=== PATIENT | female | born 1975 | race African-American/Black ===

== ENCOUNTER 2016-11-30 05:04 | Inpatient (IN) | payer MEDICAID ==
[2016-11-30] MEDS ORDERED: MAG HYDROX/AL HYDROX/SIMETH 30 ML CUP PO PRN (07:15)
[2016-11-30] MEDS ORDERED: MAGNESIUM HYDROXIDE 2,400 MG/10 ML CUP PO PRN (07:15)
[2016-11-30] MEDS ORDERED: ZIPRASIDONE 20 MG VIAL IM PRN (07:15)
[2016-11-30] MEDS ORDERED: ACETAMINOPHEN TAB 325 MG TAB PO PRN (07:15)
[2016-11-30] MEDS ORDERED: LORazepam 2 MG/ML SYRINGE IM PRN (07:21)
[2016-11-30] MEDS: NICOTINE 14MG/24HR PATCH TRANSDERM SCH (08:45)
[2016-11-30] MEDS: LORazepam 1 MG TAB PO PRN ×2 (08:46→16:25)
[2016-11-30] MEDS ORDERED: DIPHENOX-ATROP 2.5-0.025 MG 1 EACH TAB PO PRN (09:49)
[2016-11-30 10:26] VITALS: BMI 29.8
[2016-11-30] MEDS: cloNIDine HCL 0.2 MG TAB PO SCH ×3 (10:30→21:35)
[2016-11-30] MEDS: ONDANSETRON 4 MG TAB PO PRN ×2 (10:32→17:47)
--- NOTE | 2016-11-30 15:28 | P.HP ---
Psychiatric H&P - . H&P Date: 11/30/16 History & Physical: IDENTIFYING DATA: Ms. Daniel is a 41-year-old single -Nigerien woman transferred from [facility] with suicidal ideation. HISTORY OF PRESENT ILLNESS: According to the records from [facility] she presented with suicidal ideation and a plan to "overdose on pills". She also reported "intermittent suicidal ideation." She told her brother today about her suicidal thoughts and he call emergency services. She had difficulty concentrating and attending to the interview due to level of her distress. She stated that she has been feeling depressed and having thoughts of suicide because she is "tired of using drugs". She complained of "feeling sick" because he has not used heroin since the day prior to admission. She complained of daily use of heroin and frequent use of cocaine. She either insufflate or injects heroin. She smokes the cocaine. She feels frustrated and angry that she is unable to stop using drugs. She denied suicidal thoughts or wishes during our interview. She stated that she told her brother that she was having thoughts of suicide because she wanted to get treatment for her drug use. She requested to a referral to a residential substance abuse treatment program. She described feelings depression, hopelessness, helplessness and worthlessness. She described decreased interest in activities other than using drugs. She feels guilty over her drug use and her failed attempts to stop using. She has difficulty concentrating, has difficult decreased energy and decrease in pleasure in activities. She complained of anxiety that increases when she is unable to obtain heroin. She spends most for day either trying to obtain heroin and cocaine, using the drugs or recovering from their effects. She described symptoms of opiate withdrawal including diffuse aching of her joints and muscles, nausea and loose stools, irritability and anxiety. She denied psychotic symptoms such as auditory or visual hallucinations, ideas of reference, thought insertion, thought withdrawal or thought broadcasting. She stated the "occasionally" takes narcotic pain medications such as Vicodin or oxycodone. He denied the use of alcohol, methamphetamine, marijuana or hallucinogenic. PAST PSYCHIATRIC HISTORY: She has had several past psychiatric hospitalizations. She was discharged from this unit on 05/17/2015 with diagnosis of drug overdose, depression and opiate dependence. PAST MEDICAL HISTORY: She is hepatitis C positive. She is unaware whether she is been tested for HIV. ALLERGIES: NO KNOWN DRUG ALLERGIES. SUBSTANCE USE HISTORY: She stated that she has been using heroin for the last 3 years. She briefly attended a treatment program at [place]. She has not participated in a methadone clinic or prescribed Suboxone. She denied that she has been in long-term residential rehabilitation program. She has been using cocaine "for 2 years". She primarily smokes cocaine and denied injecting. She has exchanged sex for money in order to buy drugs but denied that she exchanged sex for drugs. FAMILY PSYCHIATRIC/SUBSTANCE USE HISTORY: She alleged that "all my family" have a mental illness. She lives with her mother, brother and sister all of whom are on disability for mental health issues. She stated that most of her family have bipolar illness or schizophrenia. LEGAL HISTORY: He denied current legal problems. She is not on probation, parole or has pending charges. She denied arrests or time spent in [facility]. SOCIAL HISTORY: She was born in [place] and raised primarily by her mother. She has 9 brothers and sisters from different fathers. She left school in the 10th grade. 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 She's been unemployed for 5 years. She has no income. She lives with her mother, a brother and sister in [facility]. She has 2 children ages 4 and 17 who are under the care of their respective fathers. MENTAL STATUS EXAM: She presented as a disheveled appearing 41-year-old - Nigerien female who was in acute distress. She had difficulty concentrating and attending to the interview. She did not make eye contact. She frequently bent over in his chair and held her stomach. She complained of "feeling sick." She had no distinguishing features or prominent physical abnormalities. She had a distressed facial expression. She was sedated but oriented to person, place and time. She had marked psychomotor retardation and no abnormal involuntary movements. She had a slow but steady gait. Her speech was not spontaneous. It had decreased rate, rhythm and volume. Her affect was dysphoric and unreactive. She denied current suicidal ideation but expressed wishes related to her ongoing drug use. She denied homicidal ideation. She expressed depressive cognitions including hopelessness, helplessness and worthlessness. She ruminated under on her drug use and her inability to stop using drugs. She denied obsessions or compulsions. She denied phobias and ideas of reference. She did not express paranoid ideation or delusional beliefs. Her thinking was concrete but her associations were coherent and logical. She did not demonstrate perseveration, neologisms or blocking. She denied hallucinations and did not appear to be responding to internal stimuli. Global impression of intellect is average to below. She is aware of her illness and need for substance abuse treatment. STRENGTHS: Stable housing, supportive family, good physical health. WEAKNESSES: Lack of income, use of heroin and cocaine IMPRESSION: She is a 41-year-old single Nigerien female who has a history of clear heroin and cocaine use disorder. She presented with depression and suicidal ideation related to her inability to stop using drugs. She is experiencing acute signs and symptoms of opiate withdrawal. She would best be treated inpatient basis for the opiate withdrawal. After withdrawal, evaluate need for mental health treatment and refer for residential substance abuse treatment. 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 Symptomatic treatment of her opiate withdrawal symptoms with clonidine, Ativan, Lomotil and Zofran. Consult medicine service for a physical exam and medical history. Completed a social service evaluation and coordinated referral to residential substance abuse treatment with clinical social worker. Allergies Allergy/AdvReac Type Severity Reaction Status Date / Time No Known Allergies Allergy Verified 11/30/16 10:27 Vital Signs Temp 98.1 F 11/30/16 06:50 Pulse 107 H 11/30/16 10:33 Resp 16 11/30/16 10:33 BP 114/77 11/30/16 10:33 Pulse Ox 99 11/30/16 06:50 Intake & Output 11/29/16 11/30/16 11/30/16 18:59 06:59 18:59 Weight 67 kg Laboratory Last Values TSH 0.026 mIU/L (0.465-4.680) L 11/30/16 09:20 11/30/16 13:14 11/30/16 15:21
[2016-11-30] MEDS ORDERED: ALBUTEROL INHALER 60 PUFF/8 GM INHALER INHALATION PRN (15:48)
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
[2016-11-30] MEDS: SYMBICORT 80-4.5 MCG INHALER INHALATION SCH (22:15)
[2016-12-01] MEDS: LORazepam 1 MG TAB PO PRN (02:48)
[2016-12-01] MEDS: ONDANSETRON 4 MG TAB PO PRN (03:32)
[2016-12-01] MEDS: SYMBICORT 80-4.5 MCG INHALER INHALATION SCH ×2 (07:58→20:36)
[2016-12-01] MEDS: PANTOPRAZOLE 40 MG TABLET PO SCH (08:18)
[2016-12-01] MEDS: NICOTINE 14MG/24HR PATCH TRANSDERM SCH (08:18)
[2016-12-01] MEDS: amLODIPine 10 MG TAB PO SCH (09:10)
[2016-12-01] MEDS: cloNIDine HCL 0.2 MG TAB PO SCH (09:10)
[2016-12-01] MEDS: LISINOPRIL-HCTZ 20-12.5 MG 1 EACH TAB PO SCH (09:10)
[2016-12-01] MEDS ORDERED: INFLUENZA VACCINE (3YR+) 60 MCG/0.5 ML SYRINGE IM ONE (12:00)
[2016-12-01] MEDS: QUEtiapine 25 MG TAB PO SCH ×2 (12:18→16:45)
[2016-12-01] MEDS: VENLAFAXINE HCL ER 75 MG CAP PO SCH (12:19)
--- NOTE | 2016-12-01 14:45 | P.PN ---
Progress Note - Text CLINICAL PROBLEMS: Ms. Daniel is a 41-year-old single -Icelandic woman who has a history of heroin and cocaine use disorder. She presented with complaints of depression and suicidal ideation that developed as she was attempting to self detox from heroin and cocaine. She spoke with the psychiatric social worker about referral for residential substance abuse treatment. Her [facility] chart authorized admission to [facility]. She made initial contact to the program. She minimized the severity of her opiate withdrawal symptoms and complained that we not are not addressing her "depression, anxiety ... and sleep problems. ". I explained that he would not prescribe her benzodiazepine or opioid pain medications. We discussed treatment options and agreed to a trial of antidepressant and a nonnarcotic sleep medication. She consented to a trial of venlafaxine and Seroquel. 24 HOUR EVENTS: She received Lomotil, Zofran, clonidine and 1 dose of lorazepam for opiate withdrawal symptoms. EXAMINATION: She presented as an irritable and angry 41-year-old - Icelandic woman. She was dressed in casual clothes and was wearing makeup. She made eye contact and appeared to attend to interview. She had no distinguishing features or prominent physical abnormalities. She showed no abnormality of psychomotor activity. She had no abnormal movements. Her gait was slow but stable. Her speech was spontaneous with normal rate, rhythm and volume. Her affect was angry and at times intense and appropriate. She denied suicidal ideation or wish. She expressed depressive cognitions such as helplessness. She denied ideas reference didn't express paranoid ideation. Her thinking was concrete. Associations were coherent and logical. PERTINENT DATA: TSH was low at 0.026 ASSESSMENT: She is irritable and most like he experiencing continued opiate withdrawal symptoms. She is complaining of symptoms of depression and anxiety. She has paid initial contact for residential substance abuse treatment. PLAN: Decrease clonidine to 0.1 mg 3 times a day and discontinue over the next 2 or 3 days. Continue current dose of Lomotil, Zofran and lorazepam for opiate withdrawal symptoms. Begin venlafaxine ex are 75 mg daily and Seroquel 25 mg twice a day and 100 mg at bedtime. Encourage participation in therapeutic groups and activities. Evaluate clinical status response to treatment on a daily basis. She may be discharged to residential substance abuse program.
[2016-12-01] MEDS: cloNIDine HCL 0.1 MG TAB PO SCH ×2 (16:45→21:45)
[2016-12-01] MEDS: QUEtiapine 100 MG TAB PO SCH (21:44)
[2016-12-02] MEDS: PANTOPRAZOLE 40 MG TABLET PO SCH (08:18)
[2016-12-02] MEDS: LISINOPRIL-HCTZ 20-12.5 MG 1 EACH TAB PO SCH (08:36)
[2016-12-02] MEDS: QUEtiapine 25 MG TAB PO SCH ×2 (08:37→16:08)
[2016-12-02] MEDS: amLODIPine 10 MG TAB PO SCH (08:37)
[2016-12-02] MEDS: VENLAFAXINE HCL ER 75 MG CAP PO SCH (08:38)
[2016-12-02] MEDS: cloNIDine HCL 0.1 MG TAB PO SCH (08:38)
[2016-12-02] MEDS: NICOTINE 14MG/24HR PATCH TRANSDERM SCH (08:38)
[2016-12-02] MEDS: SYMBICORT 80-4.5 MCG INHALER INHALATION SCH ×2 (09:55→21:21)
[2016-12-02] MEDS ORDERED: hydrOXYzine PAMOATE 25 MG CAP PO PRN (11:52)
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
[2016-12-02 12:55] LABS: Appearance,Urine Cloudy (Clear); Bacteria,Urine Rare /hpf; Bilirubin,Urine Negative (Negative); Glucose,Urine (UA) Negative (Negative); Ketones,Urine Negative (Negative); Leukocyte Esterase,Urine Small (Negative); Nitrite,Urine Negative (Negative); PH, Urine 5.5 (5.0-8.0); Particle Count 4433; Protein,Urine Negative (Negative); RBC,Urine 3 /hpf (0-5); Specific Gravity,Urine 1.009 (1.001-1.035); Squamous Epithelial Cell,Urine 13 /hpf (0-4); UA Billing (MACRO vs. MICRO) MICRO; Urobilinogen,Urine <2.0 mg/dL (<2.0); WBC,Urine 3 /hpf (0-5)
[2016-12-02] MEDS: LORazepam 1 MG TAB PO PRN (18:23)
[2016-12-02] MEDS: DOXYCYCLINE 50 MG CAP PO SCH (20:16)
[2016-12-02] MEDS: QUEtiapine 100 MG TAB PO SCH (20:16)
[2016-12-03] MEDS: LORazepam 1 MG TAB PO PRN ×3 (04:02→20:42)
[2016-12-03] MEDS: NICOTINE 14MG/24HR PATCH TRANSDERM SCH ×2 (08:20→15:19)
[2016-12-03] MEDS: QUEtiapine 25 MG TAB PO SCH ×2 (08:22→15:19)
[2016-12-03] MEDS: VENLAFAXINE HCL ER 75 MG CAP PO SCH (08:22)
[2016-12-03] MEDS: LISINOPRIL-HCTZ 20-12.5 MG 1 EACH TAB PO SCH (08:22)
[2016-12-03] MEDS: PANTOPRAZOLE 40 MG TABLET PO SCH (08:22)
[2016-12-03] MEDS: amLODIPine 10 MG TAB PO SCH (08:22)
[2016-12-03] MEDS: DOXYCYCLINE 50 MG CAP PO SCH ×2 (08:22→20:42)
[2016-12-03] MEDS: SYMBICORT 80-4.5 MCG INHALER INHALATION SCH ×2 (09:32→20:40)
--- NOTE | 2016-12-03 12:04 | P.PN ---
Progress Note - Text Interval history: The patient is found in the hallway she follows me to an interview room. She reports that she did not sleep well last night, she continues to feel depressed, and feels anxious. She states she would like the Ativan dose increased and would like another "nerve pill". She found the Vistaril ineffective and does not wish to continue trying that medication. We discussed titrating the bedtime Seroquel dose further and she is agreeable. We again reviewed her psychotropic medications and emphasized the potential beneficial impact of the Effexor XR. We discussed that we need to refrain from using any more medications that have addictive potential. She verbalizes a willingness to attend inpatient chemical dependency treatment. Mental status exam: The patient is an alert -Dominican female appearing her stated age. She is seated calmly eye contact is appropriate. She endorses a depressed mood with ongoing anxiety. Affect is constricted. She denies having any acute suicidal or homicidal ideation today. She is endorsing no auditory or visual hallucinations. Speech is spontaneous fluent nonpressured thought process is free of any tangential thinking flight of ideas or loose associations. She demonstrates no verbal or physical aggressiveness. She is easily directed in the interview. She remains oriented to person place and date. Plan: The patient will continue on her current psychotropic medications however I will discontinue the Vistaril as she found ineffective. I will increase her bedtime Seroquel dose to 200 mg. I a informed her that we could not increase her use of benzodiazepine and that we should move in the direction of trying to taper that down. Dr. Malcolm was contacted and the patient was started on doxycycline for her complaint of vaginal discharge. We will monitor the patient for safety we will encourage her participation in the milieu. Vital signs reviewed. Dr. Kern will resume care of this patient starting tomorrow.
[2016-12-03] MEDS ORDERED: QUEtiapine 200 MG TAB PO SCH (21:00)
[2016-12-04] MEDS: LORazepam 1 MG TAB PO PRN (04:29)
[2016-12-04] MEDS: VENLAFAXINE HCL ER 75 MG CAP PO SCH (08:10)
[2016-12-04] MEDS: PANTOPRAZOLE 40 MG TABLET PO SCH (08:10)
[2016-12-04] MEDS: DOXYCYCLINE 50 MG CAP PO SCH ×2 (08:10→19:53)
[2016-12-04] MEDS: QUEtiapine 25 MG TAB PO SCH (08:10)
[2016-12-04] MEDS: LISINOPRIL-HCTZ 20-12.5 MG 1 EACH TAB PO SCH (08:10)
[2016-12-04] MEDS: amLODIPine 10 MG TAB PO SCH (08:10)
[2016-12-04] MEDS: SYMBICORT 80-4.5 MCG INHALER INHALATION SCH ×2 (09:14→18:54)
[2016-12-04] MEDS: NICOTINE 14MG/24HR PATCH TRANSDERM SCH (09:59)
[2016-12-04] MEDS ORDERED: VENLAFAXINE HCL ER 75 MG CAP PO SCH (10:28)
[2016-12-04] MEDS ORDERED: QUEtiapine 100 MG TAB PO SCH (10:30)
[2016-12-04] MEDS: NALTREXONE HCL 50 MG TAB PO SCH (11:50)
[2016-12-04] MEDS: LORazepam 1 MG TAB PO SCH ×3 (12:54→21:11)
[2016-12-04] MEDS ORDERED: RX INFO: IV CONTRAST WAS GIVEN 1 EACH MISC MISCELLANE PRN (13:53)
--- NOTE | 2016-12-04 13:54 | P.PN ---
Progress Note - Text SUBJECTIVE: Ms. Daniel complained of anxiety and insomnia and requested an increase in the dose of lorazepam. When I denied her request she requested a prescription for clonazepam. She also requested a prescription for Ambien alleging that "a physician" has prescribed her Ambien. She alleged that his outpatient doctor has been prescribing her clonazepam for "anxiety". She is denying that she is experiencing opiate withdrawal symptoms. We talked about the effects of chronic opiate use on the brain and how individuals who use heroin feel dysphoric for several months after he stopped using heroin. Later in the morning she complained of right flank pain. OBJECTIVE: She presented as a neatly groomed and dressed 41-year-old female who looked younger than her stated age. She was flirtatious. She maintained eye contact and appeared to attend to the interview. She slept 5 hours last night. She had a bright facial expression. She was alert and oriented to person, place and time. She showed no abnormality of psychomotor activity. She had no abnormal movements. Her gait was stable. Her speech was spontaneous with normal rate, rhythm and volume. Her affect was bright and reactive. She denied suicidal ideation or wishes. She denied depressive cognitions such as hopelessness, helplessness and worthlessness. Her thinking was concrete. Associations were coherent and logical. She denied hallucinations and did not appear to be responding to internal stimuli. ASSESSMENT: She does not have signs or symptoms of acute opiate withdrawal. For sleep and anxiety complaints. Her dysphoria is most likely related to her chronic opiate use. Her complaints of anxiety are disproportionate to her presentation. She is medication seeking. She is complaining of right flank pain. PLAN: Reconsult medicine service for the right flank pain. Increase Effexor XR 250 mg daily. Increased quetiapine to 50 mg by mouth twice a day and 300 mg at bedtime for sleep and anxiety complaints. Evaluate clinical status and response to treatment on a daily basis. Social work to assist with placement in a residential substance abuse treatment program.
[2016-12-04] MEDS: IOHEXOL 350 MG/ML 25 ML BOTTLE (ORAL USE) PO PRN ×2 (14:19→15:14)
--- NOTE | 2016-12-04 14:50 | P.PN ---
Subjective This is a 41-year-old -[place] female with past history of emphysema, hypertension, right ovarian cyst, hepatitis C, tobacco use and dependence, heroin and cocaine use, prescription drug abuse with Paulina and Klonopin, schizophrenia, anxiety, bipolar. Patient gives history that she was at [facility] as she was trying to quit taking heroin and she had withdrawal symptoms. She was stabilized and then transferred to [facility] unit. Patient denies any shortness of breath. She denies any nausea vomiting, lightheadedness or dizziness. 12/04: We have been asked to recheck patient for complaints of abdominal pain. She gives history that she has a right ovarian cyst that causes her pain since September. The pain comes and goes. She thinks she has had chills. No documented fevers. Urinalysis negative. She states her last bowel movement was this morning. CAT scan of the abdomen and pelvis ordered. Objective - Vital Signs Vital signs: Vital Signs Temp 97.4 F L 12/04/16 05:42 Pulse 102 H 12/04/16 09:13 Resp 16 12/04/16 09:13 BP 112/70 12/04/16 09:13 Pulse Ox 99 11/30/16 06:50 Intake & Output 12/03/16 12/04/16 12/04/16 18:59 06:59 18:59 Weight 63.1 kg - Exam Gen: This is a 41-year-old -[place] female. She is cooperative and appears to be in no acute distress. HEENT: Head is atraumatic, normocephalic. Pupils equal, round. Sclerae is anicteric. NECK: Supple. No JVD. No lymphadenopathy. No thyromegaly. LUNGS: Clear to auscultation. No wheezes or rhonchi. No intercostal retractions. HEART: Regular rate and rhythm. No murmur. ABDOMEN: Soft. Bowel sounds are present. No masses. Right lower quadrant tenderness. EXTREMITIES: No pedal edema. No calf tenderness. NEUROLOGICAL: Patient is awake, alert and oriented x3. Cranial nerves 2 through 12 are grossly intact. Assessment and Plan Plan: 1. Depression. Patient admitted to the mental health unit. Continue current plan of care. 2. Heroin abuse and withdrawal, cocaine, prescription drug use. Continue as in #1. 3. Tobacco use and dependence. Continue nicotine patch. 4. Emphysema, stable. Albuterol inhaler 2 puffs every 6 hours as needed. Patient is also on Dulera as an outpatient. 5. Hypertension. Continue Zestoretic daily, Norvasc 10 mg daily with parameters. 6. Ovarian cyst requiring surgery. Patient to follow-up as an outpatient. CAT scan of the abdomen and pelvis with oral and IV contrast to rule out appendicitis. 7. History of hepatitis C. Patient will need follow-up as an outpatient. Impression and plan of care have been directed as dictated by the signing physician. Jenifer Tejada nurse practitioner acting as scribe for signing physician. Time with Patient: Greater than 30
[2016-12-04] MEDS: QUEtiapine 50 MG TAB PO SCH ×2 (16:21→16:52)
--- NOTE | 2016-12-04 16:55 | CT ---
EXAMINATION TYPE: CT abdomen pelvis w con DATE OF EXAM: 12/04/2016 4:47 PM HISTORY: Right Lower Quadrant pain CT DLP: 421.5mGycm Automated Exposure Control for Dose Reduction was Utilized. CONTRAST: CT scan of the abdomen and pelvis is performed with IV Contrast, patient injected with 100 mL of Omni paque 300. COMPARISON: None. FINDINGS: LUNG BASES: No significant abnormality is appreciated. LIVER/GB: No significant abnormality is appreciated. PANCREAS: No significant abnormality is seen. SPLEEN: No significant abnormality is seen. ADRENALS: No significant abnormality is seen. KIDNEYS: No significant abnormality is seen. BOWEL: Patient has very little intra-abdominal fat making evaluation suboptimal. Oral contrast reache s level of the distal transverse colon. There is no suspicious small or large bowel dilatation identi fied. Appendix is felt within normal limits seen from the medial margin of the cecum best on coronal images 37 through 44. Some prominence of fecal material in the transverse colon is noted. UTERUS/ADNEXA: Uterus is anteverted in shape and within normal limits in size. There is linear calcif ication along the left superior uterine wall of uncertain etiology presumed benign. Right ovary is se en on axial image 58 and is upper limits of normal in size. Left ovary is not as well seen. No left-s ided adnexal mass is clearly identified. LYMPH NODES: No greater than 1cm abdominal or pelvic lymph nodes are appreciated. OSSEOUS STRUCTURES: There are bilateral pars defects. There is grade 2 anterolisthesis of L5 on S1. T here is advanced disc space narrowing with endplate sclerosis at this level. Bilateral neural foramin a are narrowed. OTHER: No significant additional abnormality is seen. IMPRESSION: 1. No CT evidence for acute appendicitis. No bowel obstruction is present. There may be mild to moder ate mid colonic fecal stasis. 2. Bilateral pars defects L5 level with grade 2 anterolisthesis of L5 on S1 and advanced degenerative changes at lumbosacral junction noted.
[2016-12-05 06:47] VITALS: TEMP 98
[2016-12-05 08:38] VITALS: BP 127/65; PULSE 106; RESP 18
[2016-12-05] MEDS: PANTOPRAZOLE 40 MG TABLET PO SCH (08:38)
[2016-12-05] MEDS: amLODIPine 10 MG TAB PO SCH (08:38)
[2016-12-05] MEDS: LISINOPRIL-HCTZ 20-12.5 MG 1 EACH TAB PO SCH (08:38)
[2016-12-05] MEDS: DOXYCYCLINE 50 MG CAP PO SCH (08:39)
[2016-12-05] MEDS: QUEtiapine 50 MG TAB PO SCH (08:39)
[2016-12-05] MEDS: LORazepam 1 MG TAB PO SCH (08:39)
[2016-12-05] MEDS: NALTREXONE HCL 50 MG TAB PO SCH (08:40)
[2016-12-05] MEDS: NICOTINE 14MG/24HR PATCH TRANSDERM SCH ×2 (08:42→09:00)
[2016-12-05] MEDS: SYMBICORT 80-4.5 MCG INHALER INHALATION SCH (09:24)
[2016-12-05] MEDS ORDERED: LORazepam 1 MG TAB PO PRN (09:50)
[2016-12-05] MEDS ORDERED: CYANOCOBALAMIN 500 MCG TAB PO SCH (12:00)
--- NOTE | 2016-12-05 12:23 | P.PN ---
Progress Note - Text SUBJECTIVE: Annie again requested a prescription for Adderall and an increase in the dose of Ativan. She alleged that "a doctor" has been prescribing her clonazepam. She put on a dramatic show when I told her that I would not prescribe her controlled substances and I would not discharge her with a prescription for Ativan. She pleaded that she did "something" to give her energy and requested a "B12 shot." I explained we do not administered B-12 shots on the unit without an bale opener recommendation for such treatment. As a compromise I offered to prescribe a B12 oral supplement. She stated she no longer wishes to be admitted to [facility] for substance abuse treatment. She reported bad experience during her last admission there in September 2016. She stated that she wished to arrange follow-up at [facility] and [facility] and returned to her mother's home. After the initial interview she approachged me in the hallway and again pleaded for me to prescribe her something to boost her energy. She was less dramatic in response to my refusal. She apprached me in the hallway a third time alleging that she is depressed, anxious and "hearing voices". She alleged that all of her family have schizophrenia, bipolar or ADHD and receiving treatments for any illnesses. I explained that we are providing her treatment for depression and anxiety. I once again explained that we will not be prescribing her controlled substance giving her history of substance use disorders. OBJECTIVE: She presented as a dramatic and labile 41-year-old - [place] female who was neatly groomed and wearing heavy makeup. She maintained eye contact and appeared to attend to the interview. She had a bright facial expression. She demonstrated no abnormality of psychomotor activity. She had no abnormal movements. She had a normal gait. Her speech was spontaneous with normal rate, rhythm and volume. Her affect was labile. She denied suicidal ideation or wishes. She denied homicidal ideation. She denied depressive cognitions such as worthlessness, hopelessness and helplessness. She was preoccupied on obtaining prescriptions for controlled substances. She did not express ideas reference or paranoid thoughts. Her thinking was concrete. Associations were coherent and logical. She alleged that she was "hearing voices" but she did not appear to be responding to internal stimuli. We consulted medicine service yesterday for complaints of right flank pain. The datastage consultant diagnosed ovarian cyst and recommended a computed tomography scan of abdomen and pelvis with oral and IV contrast to rule out appendicitis. The computed tomography scan showed no evidence of acute appendicitis, no obstruction but mild to moderate mild colonic fecal stasis. ASSESSMENT: She is not having signs or symptoms of opiate withdrawal. She is medication seeking and dramatic in her attempts to obtain prescriptions for controlled substances such as psychostimulants and benzodiazepines. PLAN: Begin vitamin B12 50 mg by mouth daily, continue quetiapine 50 mg by mouth twice a day and 300 mg at bedtime as well as venlafaxine ex are 150 mg daily. Cancel referral to [facility] substance abuse and correction worker to arrange for follow-up through [facility]. Discharge home once weekly obtain outpatient aftercare appointments.
--- NOTE | 2016-12-05 13:44 | P.DS ---
Providers Date of admission: 11/30/16 06:58 Attending physician: Zac Kern MD Consults: 11/30/16 07:15 Consult Physician Routine Consulting Provider: Lindsay Guzman Consult Reason/Comments: For H & P for Medical Follow Up Do you want consulting provider notified?: Yes, Notify in am 12/04/16 11:11 Consult Physician Routine Consulting Provider: Lindsay Guzman Consult Reason/Comments: c/o right flank pain Do you want consulting provider notified?: Yes Primary care physician: Lindsay Guzman - Discharge Diagnosis(es) (1) Opioid use disorder, severe, dependence Current Visit: Yes Status: Chronic Priority: High (2) Opioid withdrawal Current Visit: Yes Status: Resolved Priority: Low (3) Cocaine use disorder, severe, dependence Current Visit: Yes Status: Chronic Priority: High (4) Sedative, hypnotic or anxiolytic abuse Current Visit: Yes Status: Chronic Priority: High (5) Drug-induced mood disorder Current Visit: Yes Status: Chronic Priority: Medium Hospital Course: IDENTIFYING DATA: Ms. Daniel is a 41-year-old single -Citizen Of [place] woman transferred from [facility] with suicidal ideation. HISTORY OF PRESENT ILLNESS: According to the records from [facility] she presented with suicidal ideation and a plan to "overdose on pills". She also reported "intermittent suicidal ideation." She told her brother today about her suicidal thoughts and he call emergency services. She had difficulty concentrating and attending to the interview due to level of her distress. She stated that she has been feeling depressed and having thoughts of suicide because she is "tired of using drugs". She complained of "feeling sick" because he has not used heroin since the day prior to admission. She complained of daily use of heroin and frequent use of cocaine. She either insufflate or injects heroin. She smokes the cocaine. She feels frustrated and angry that she is unable to stop using drugs. She denied suicidal thoughts or wishes during our interview. She stated that she told her brother that she was having thoughts of suicide because she wanted to get treatment for her drug use. She requested to a referral to a residential substance abuse treatment program. She described feelings depression, hopelessness, helplessness and worthlessness. She described decreased interest in activities other than using drugs. She feels guilty over her drug use and her failed attempts to stop using. She has difficulty concentrating, has difficult decreased energy and decrease in pleasure in activities. She complained of anxiety that increases when she is unable to obtain heroin. She spends most for day either trying to obtain heroin and cocaine, using the drugs or recovering from their effects. She described symptoms of opiate withdrawal including diffuse aching of her joints and muscles, nausea and loose stools, irritability and anxiety. She denied psychotic symptoms such as auditory or visual hallucinations, ideas of reference, thought insertion, thought withdrawal or thought broadcasting. She stated the "occasionally" takes narcotic pain medications such as Vicodin or oxycodone. He denied the use of alcohol, methamphetamine, marijuana or hallucinogenic. PAST PSYCHIATRIC HISTORY: She has had several past psychiatric hospitalizations. She was discharged from this unit on 05/17/2015 with diagnosis of drug overdose, depression and opiate dependence. SUBSTANCE USE HISTORY: She stated that she has been using heroin for the last 3 years. She briefly attended a treatment program at [facility]. She has not participated in a methadone clinic or prescribed Suboxone. She denied that she has been in long-term residential rehabilitation program. She has been using cocaine "for 2 years". She primarily smokes cocaine and denied injecting. She has exchanged sex for money in order to buy drugs but denied that she exchanged sex for drugs. HOSPITAL COURSE: We admitted her voluntarily to the psychiatric unit under the care of this typewriter aligner. We provided a biopsychosocial assessment. The dietitian consultant narcotics and/or vice detective completed the initial physical exam and medical history. The dietitian consultant diagnosed her with heroin use and withdrawal, cocaine use, prescription drug use, emphysema, hypertension, ovarian cyst and hepatitis C. We reconsulted the narcotics and/or vice detective on 12/04/2016 because she complained of right flank pain. Her physical exam was unremarkable and a computed tomography scan was negative for evidence of abdominal pathology. We treated her opiate withdrawal symptoms symptomatically with clonidine (up to a dose of 0.2 mg 3 times a day), Lomotil, Zofran and lorazepam when necessary. Her opiate detoxification was uneventful. She was preoccupied with obtaining prescriptions for controlled medications. She frequently approaches his typewriter aligner to obtain prescriptions for psychostimulants and/or benzodiazepines. She complained that the dose of lorazepam we prescribed as PRN was insufficient. She was quite dramatic in response to our denial of these requests. She talked about her "need" for something to boost her energy and for anxiety. We treated her complains of depression and anxiety with venlafaxine XR up to 150 mg per day and quetiapine 50 mg twice a day and 300 mg at bedtime. We initially recommended, and she accepted, a referral to [facility] for residential substance abuse treatment. The day prior to discharge she declined this referral. She stated she wished to return to her mother's home and receive treatment through [facility] in [place], [place]. Up until her discharge she pleaded for prescriptions for Adderall and clonazepam. Plan - Discharge Summary New Discharge Prescriptions: Albuterol Inhaler [Ventolin Hfa Inhaler] 1 - 2 puff INHALATION RT-Q6H PRN 30 Days PRN Reason: Shortness Of Breath Cyanocobalamin [Vitamin B-12] 500 mcg PO 1200 #30 tab Lisinopril-Hctz 20-12.5 mg [Zestoretic 20-12.5] 1 tab PO DAILY 30 Days Mometasone/Formoterol [Dulera 100 Mcg/5 Mcg Inhaler] 2 puff INHALATION RT-BID 30 Days Naltrexone HCl [Revia] 50 mg PO DAILY 30 Days Nicotine 14Mg/24Hr Patch [Habitrol] 1 patch TRANSDERM DAILY 14 Days Omeprazole [PriLOSEC] 20 mg PO DAILY 30 Days QUEtiapine [SEROquel] 300 mg PO HS 30 Days QUEtiapine [SEROquel] 50 mg PO BID@0900,1600 30 Days Venlafaxine HCl ER [Effexor XR] 150 mg PO DAILY 30 Days amLODIPine [Norvasc] 10 mg PO DAILY 30 Days Discharge Medication List Albuterol Inhaler [Ventolin Hfa Inhaler] 1 - 2 puff INHALATION RT-Q6H PRN 30 Days 12/05/16 [Rx] Cyanocobalamin [Vitamin B-12] 500 mcg PO 1200 #30 tab 12/05/16 [Rx] Lisinopril-Hctz 20-12.5 mg [Zestoretic 20-12.5] 1 tab PO DAILY 30 Days 12/05/16 [Rx] Mometasone/Formoterol [Dulera 100 Mcg/5 Mcg Inhaler] 2 puff INHALATION RT-BID 30 Days 12/05/16 [Rx] Naltrexone HCl [Revia] 50 mg PO DAILY 30 Days 12/05/16 [Rx] Nicotine 14Mg/24Hr Patch [Habitrol] 1 patch TRANSDERM DAILY 14 Days 12/05/16 [Rx ] Omeprazole [PriLOSEC] 20 mg PO DAILY 30 Days 12/05/16 [Rx] QUEtiapine [SEROquel] 50 mg PO BID@0900,1600 30 Days 12/05/16 [Rx] QUEtiapine [SEROquel] 300 mg PO HS 30 Days 12/05/16 [Rx] Venlafaxine HCl ER [Effexor XR] 150 mg PO DAILY 30 Days 12/05/16 [Rx] amLODIPine [Norvasc] 10 mg PO DAILY 30 Days 12/05/16 [Rx] Follow up Appointment(s)/Referral(s): intake,intake [Other] - 12/06/16 2:00 pm
== END 2016-12-05 14:36 | disposition home or self-care (01) | DRG 897 ==
LOC: 3MHU 06:58
PROVIDERS: ADMIT Psychiatry & Neurology Psychiatry; ATTEND Psychiatry & Neurology Psychiatry
PROC: 3E0234Z Introduction of Serum, Toxoid and Vaccine into Muscle, Percutaneous Approach (ICD-10-PCS; principal; 2016-12-01)
DX: F11.23 Opioid dependence with withdrawal (principal); R45.851 Suicidal ideations; F14.23 Cocaine dependence with withdrawal; Z59.6 Low income; F13.10 Sedative, hypnotic or anxiolytic abuse, uncomplicated; F19.94 Other psychoactive substance use, unspecified with psychoactive substance-induced mood disorder; B19.20 Unspecified viral hepatitis C without hepatic coma; F17.200 Nicotine dependence, unspecified, uncomplicated; F90.9 Attention-deficit hyperactivity disorder, unspecified type; I10 Essential (primary) hypertension; J44.9 Chronic obstructive pulmonary disease, unspecified; N83.209 Unspecified ovarian cyst, unspecified side; Z81.8 Family history of other mental and behavioral disorders; G47.00 Insomnia, unspecified; F31.9 Bipolar disorder, unspecified; F20.9 Schizophrenia, unspecified; F41.9 Anxiety disorder, unspecified; Z23 Encounter for immunization; Z79.899 Other long term (current) drug therapy
CPT/HCPCS: 74177; 81001; 84443